=== PATIENT | male | born 1980 | race Caucasian/White ===

== ENCOUNTER 2019-12-14 07:25 | Inpatient (IN) | payer BC ==
[~2019-12-14] VITALS: Ht 177.8 cm; Wt 129.9 kg
[2019-12-14] VITALS (8 sets, daily range): BP systolic 118–151; BP diastolic 45–82
[~2019-12-14 07:25] MED LIST: DEPO-TESTO200 MG/1 M IM; FLEXERIL PO; KEFLEX500 MG PO; OXYCONTIN10 M1 PO; PERCOCET 5-3251 EACH PO; PYRIDIUM200 MG PO; VYVANSE60 MG PO
[2019-12-14] MEDS ORDERED: VYVANSE50 MG PO (07:34)
[2019-12-14] MEDS ORDERED: GABAPENTIN600 M1 PO (07:35)
[2019-12-14] MEDS ORDERED: PROZAC10 M1 PO (07:36)
[2019-12-14] MEDS ORDERED: [UNRECOGNIZED DRUG - OTHER] (07:36)
[2019-12-14 08:05] LABS: ABSOLUTE LYMPHOCYTES 1.4 thou/uL (0.8-5.3); ABSOLUTE MONOCYTES 1.1 thou/uL (0.0-1.2); ABSOLUTE NEUTROPHILS 6.8 thou/uL (1.6-8.1); BASOPHILS 0.1 %; EOSINOPHILS 0.1 %; HEMATOCRIT 33.9 % (42.0-52.0); HEMOGLOBIN 11.6 gm/dL (14.0-18.0); MCH 30.5 pg (26.0-34.0); MCHC 34.2 g/dL (28.0-37.0); MCV 89.3 fL (80.0-100.0); MONOCYTES 11.6 %; NUCLEATED RBCS 0 /100WBC; PLATELET COUNT* 214 thou/uL (150-400); POLYS 73.2 %; RDW-CV 14.3 % (10.5-14.5); WBC 9.3 thou/uL (4.0-11.0)
[2019-12-14 08:19] LABS: APTT 21.5 Seconds (25.0-31.3); CALCIUM 8.3 mg/dL (8.5-10.1); INR 1.1; POTASSIUM 4.4 mmol/L (3.5-5.1); PROTIME 11.2 Seconds (9.20-11.50)
[2019-12-14 08:23] LABS: ALBUMIN 3.6 g/dL (3.4-5.0); TOTAL BILIRUBIN 0.4 mg/dL (<0.1-1.0); TOTAL PROTEIN 6.9 g/dL (6.4-8.2)
[2019-12-14 09:12] LABS: URINE BILIRUBIN NEGATIVE (Negative); URINE BLOOD TRACE (Negative); URINE CLARITY CLEAR; URINE COLOR YELLOW; URINE GLUCOSE-RANDOM NEGATIVE (Negative); URINE KETONES NEGATIVE (Negative); URINE LEUKOCYTES-REFLEX NEGATIVE (Negative); URINE NITRITE-REFLEX NEGATIVE (Negative); URINE PROTEIN NEGATIVE (Negative); URINE UROBILINOGEN 0.2 E.U./dl (0.2-1.0)
[2019-12-14 15:30] LABS: HEMATOCRIT 29.6 % (42.0-52.0); HEMOGLOBIN 10.1 gm/dL (14.0-18.0)
--- NOTE | 2019-12-14 18:58 | NUR ---
VS CHARTED, NSR ON TELE, ROOM AIR, GI BLEED- NPO AT MIDNIGHT, COLONOSCOPY 11AM ON SUN, ADMISSION COMPLETED, PATIENT ORIENTED TO ROOM. SPOUSE AT BEDSIDE
[2019-12-14 21:35] LABS: HEMATOCRIT 27.6 % (42.0-52.0); HEMOGLOBIN 9.4 gm/dL (14.0-18.0)
[2019-12-14 21:43] LABS: CALCIUM 7.9 mg/dL (8.5-10.1); CREATININE 0.9 mg/dL (0.6-1.3); POTASSIUM 3.8 mmol/L (3.5-5.1)
[2019-12-15] VITALS: BP 131/70
[2019-12-15 04:00] VITALS: BP 120/66
[2019-12-15 06:00] LABS: ABSOLUTE LYMPHOCYTES 1.3 thou/uL (0.8-5.3); ABSOLUTE MONOCYTES 0.6 thou/uL (0.0-1.2); ABSOLUTE NEUTROPHILS 2.4 thou/uL (1.6-8.1); BASOPHILS 0.2 %; EOSINOPHILS 0.5 %; HEMATOCRIT 26.5 % (42.0-52.0); HEMOGLOBIN 9.2 gm/dL (14.0-18.0); MCH 30.7 pg (26.0-34.0); MCHC 34.6 g/dL (28.0-37.0); MCV 88.7 fL (80.0-100.0); MONOCYTES 13.1 %; MPV 8.2 fl. (7.2-11.1); NUCLEATED RBCS 0 /100WBC; POLYS 55.2 %; RBC 2.98 mil/uL (4.50-6.00); RDW-CV 13.8 % (10.5-14.5); WBC 4.3 thou/uL (4.0-11.0)
[2019-12-15 06:06] LABS: PLATELET COUNT* 137 thou/uL (150-400)
[2019-12-15 06:27] LABS: ALBUMIN 2.9 g/dL (3.4-5.0); CALCIUM 7.8 mg/dL (8.5-10.1); CREATININE 0.8 mg/dL (0.6-1.3); POTASSIUM 3.7 mmol/L (3.5-5.1); TOTAL BILIRUBIN 0.5 mg/dL (<0.1-1.0); TOTAL PROTEIN 5.8 g/dL (6.4-8.2)
--- NOTE | 2019-12-15 06:33 | NUR ---
ASSESSMENTS COMPLETED AT BEDSIDE, PLEASE SEE CHARTING FOR DETAILS. MEDICATIONS ADMINISTERED PER MAR. HOURLY ROUNDING COMPLETED FOR SAFETY. CURRENTLY RESTING IN BED WITH CALL LIGHT WITHIN REACH. BOWEL PREP COMPLETED ORDERED.
[2019-12-15 07:17] LABS: ESR (SEDRATE) 7 mm/hr (0-15)
[2019-12-15 08:20] VITALS: BP 119/53
[2019-12-15 12:40] VITALS: BP 112/57
--- NOTE | 2019-12-15 13:27 | EKG ---
[place] [address] ELECTROCARDIOGRAM REPORT Name: AILYN DONG Room: [place] [address] ADM IN .R.#: [id number] Admission: 12/14/19 Attend Phys: Talat Rolon Discharge: Date of : 76 Date of Service: 12/14/19 0750 Report #: [id number] THIS REPORT FOR: //name// [facility] ED Test Date: 2019-12-14 Test Time: 07:50:25 Pat Name: AILYN DONG Department: Room: [facility] Gender: M Vice President Quality Assurance: NICKI : [id number] Requested By: Jeff Mcneil Order Number: [id number] MD: Morgan Rai Measurements Intervals [place] Rate: 78 P: 78 TX: 114 QRS: 48 QRSD: 81 T: 28 QT: 381 QTc: 434 Interpretive Statements Sinus rhythm Borderline short TX interval No previous ECG available for comparison Electronically Signed On 12-15-2019 13:26:11 CDT by Morgan Rai [email or web address] <ELECTRONICALLY SIGNED> By: Morgan Rai MD, [facility] 12/15/19 1326 0750 0750 Morgan Rai MD, [facility] /EPI
[2019-12-15 16:30] VITALS: BP 115/60
--- NOTE | 2019-12-15 19:56 | NUR ---
ASSUMED PT CARE AT 0730. FULL ASSESSMENT DONE CHARTED. PT A/O X4, UP AD RINKU, NPO THIS AM FOR COLONOSCOPY. WAS FEELING NAUSEATED AFTER THE PROCEDURE AND C/O BACK PAIN. MEDS GIVEN PER AUG. PT HAS A CUT ON LEFT THUMB FROM AN ACCIDENT PRIOR TO ADMISSION, MEDICAITED OINTMENT ORDERED AND THUMB WRAPPED. IT IS SCABBED AND HEALING WELL. PT CALLS APPROPRIALTY FOR NEEDS. SR MEAGAN ON THE MONITOR. REPORT GIVEN TO SELWYN WALKER.
[2019-12-15 20:00] VITALS: BP 141/48
--- NOTE | 2019-12-15 20:00 | NUR ---
RECEIVED REPORT AND ASSUMED CARE OF PT, ASSESSMENT COMPLETED. PT C/O CONSTANT BACK PAIN. DISCUSSED EGD/COLONOSCOPY FINDINGS WITH ZOYA MILLARD. TELEMETRY ON SHOWING SR. WILL CONT TO MONITOR AND ASSIST NEEDED.
[2019-12-16] VITALS: BP 144/89
[2019-12-16 04:00] VITALS: BP 133/42
[2019-12-16 05:13] LABS: ABSOLUTE EOSINOPHILS 0.1 thou/uL (0.0-0.7); ABSOLUTE MONOCYTES 0.9 thou/uL (0.0-1.2); ABSOLUTE NEUTROPHILS 4.9 thou/uL (1.6-8.1); BASOPHILS 0.2 %; EOSINOPHILS 0.8 %; HEMATOCRIT 28.7 % (42.0-52.0); HEMOGLOBIN 9.9 gm/dL (14.0-18.0); LYMPHOCYTES 25.5 %; MCH 30.6 pg (26.0-34.0); MCHC 34.4 g/dL (28.0-37.0); MCV 88.9 fL (80.0-100.0); MONOCYTES 11.4 %; MPV 8.3 fl. (7.2-11.1); NUCLEATED RBCS 0 /100WBC; PLATELET COUNT* 177 thou/uL (150-400); POLYS 62.1 %; RBC 3.23 mil/uL (4.50-6.00); RDW-CV 14.3 % (10.5-14.5); WBC 7.9 thou/uL (4.0-11.0)
[2019-12-16 05:32] LABS: CREATININE 0.9 mg/dL (0.6-1.3); POTASSIUM 3.9 mmol/L (3.5-5.1)
[2019-12-16 05:38] LABS: % SATURATION 10 % (20-39); IRON 28 ug/dL (50-175)
--- NOTE | 2019-12-16 06:23 | NUR ---
AWAKE MOST OF NIGHT WITH C/O BACK PAIN. IV PAIN MED GIVEN X1. NO CHANGE IN ASSESSMENT OR RECTAL BLEEDING NOTED. HS GOALS OF REST AND SAFETY ACHIEVED. HOURLY ROUNDING OBSERVED.
[2019-12-16 06:38] LABS: ESR (SEDRATE) 3 mm/hr (0-15)
[2019-12-16 08:00] VITALS: BP 142/73
[2019-12-16] MEDS ORDERED: PANTOPRAZOLE SO40 M1 PO (09:45)
[2019-12-16] MEDS ORDERED: VITAMIN B-121000 MC2 SUBLING (09:45)
[2019-12-16 11:46] VITALS: BP 142/73
[2019-12-16] MEDS ORDERED: ACETAMINOPHEN325 MG PO (12:17)
--- NOTE | 2019-12-16 13:48 | NUR ---
VS CHARTED, A&OX4, ROOM AIR, NSR ON TELE, UP AD RINKU, CHRONIC LOWER BACK PAIN, HOURLY ROUNDING PERFORMED, POSSESSIONS AND CALL LIGHT REACH, REC DISCHARGE ORDERS, REVIEWED WITH PATIENT- QUESTIONS ANSWERED, SCRIPT FILED ELECTRONICALLY- CARE NOTES GIVEN, TELE MONITOR AND IV REMOVED WITHOUT COMPLICATION, PT TAKEN IN WC TO FRONT DOOR BY NURSING STAFF, PICKED UP BY SPOUSE IN FAMILY CAR.
--- NOTE | 2019-12-23 11:06 | CON ---
[facility] [address] [place] [address] CONSULTATION Name: AILYN DONG Room: [address] IN M.R.#: [id number] Admission: 12/14/19 Attend Phys: Shruthi Gomez Discharge: 12/16/19 Date of : 76 Report #: [id number] THIS REPORT FOR: //name// cc: IAIN Perez family physician/PCP IAIN - Ana family physician/PCP ~ THIS REPORT FOR: //name// CC: Saeid Mitchell DO FAM physician/PCP Pranav Rolon DO DATE OF SERVICE: 12/14/2019 REFERRING PHYSICIAN: Talat Rolon DO PRIMARY CARE PROVIDER: None. PROCEDURE PERFORMED: ____. IMPRESSION: 1. Overt hematochezia of uncertain etiology -- evaluate for upper and lower GI tract sources for the same. 2. History of previous gastric bypass and history of nonsteroidal use -- evaluate for complicated anastomotic ulcer versus other causes. 3. History of gastric bypass. RECOMMENDATIONS: Since the patient appeared to be orthostatic by pulse, but not by blood pressure and he is at risk for developing an anastomotic ulcer due to his recent use of meloxicam, we will proceed with upper endoscopy tonight. If this is unrevealing, then he will need to have a colonoscopy tomorrow. I have discussed the plans with the patient as well as and they are agreeable to the same. HISTORY OF PRESENT ILLNESS: The patient is a pleasant 39-year-old white male who presented to the emergency room with complaints of just feeling very lightheaded and dizzy and was having some overt hematochezia. He denies any complaints referable to his upper or lower GI tract. Denies any problem with his bowels or bowel frequency. He never had anything like this in the past. He has prior history of weight loss surgery with previous gastric bypass performed by Dr. Pranav Reilly few years ago, at which time he weighed over 450 pounds. He got down to 220 pounds and is currently back up to 300 pounds. He recently had been taking some meloxicam for some problems with his back and recently got steroid injection. Once started having some bleeding, he discontinued the meloxicam. He has undergone endoscopic studies [place] [address] CONSULTATION Name: AILYN DONG Room: [address]#: [id number] Admission: 12/14/19 Attend Phys: Shruthi Gomez Discharge: 12/16/19 Date of : 76 Report #: [id number] Melba but has never been seen by racecourse barrier attendant in the past. He denies any other issues at this time. ALLERGIES: LATEX. CURRENT MEDICATIONS: Include Vyvanse, gabapentin, fluoxetine. He was taking some oxycodone at one point. PAST MEDICAL AND SURGICAL HISTORY: Remarkable for peripheral neuropathy. He has had history of sleep apnea. He has had bariatric surgery with a gastric bypass and Heron-en-Y surgery. He has had hypertension. He has had ureteral surgery, prostate issues and back issues for which he is getting injections. SOCIAL HISTORY: The patient does not smoke or drink. FAMILY HISTORY: Negative. PHYSICAL EXAMINATION: GENERAL: Pleasant 39-year-old gentleman who is awake and alert. CARDIOPULMONARY: Revealed a regular rate and rhythm. LUNGS: Clear. ABDOMEN: Soft and minimally tender. No rebound or guarding noted. LABORATORY DATA: From the revealed a white count of 9.3, hemoglobin 11.6, platelet count 214,000, MCV is 89.3 and RDW is 14.3. By comparison in 2011; his hemoglobin was 13.7. His complete metabolic panel: Sodium 138, potassium 3.8, chloride 105, bicarbonate 28, BUN 22, creatinine 0.9 for GFR of 94. Total bilirubin 0.4, alkaline phosphatase 62, AST 17, ALT 19, albumin is 3.6. CT scan of the abdomen and pelvis performed on the revealed postsurgical changes compatible with previous gastric bypass. There was some high attenuation fluid still sitting within the rectum as well as throughout the remainder of the colon, possibly representing blood throughout the colon. There is no bowel wall thickening and pericolonic stranding or any other issues. Small bowel appeared normal. ____ possible abnormality was noted, there was also circumferential mural thickening of the urinary bladder despite bladder distention. DISCUSSION: At the present time, the patient has some GI bleeding with overt hematochezia. We will proceed with upper endoscopy today because of his [address] [address] CONSULTATION Name: LETITIAAILYN CRAWFORD Room: [address] IN M.R.#: [id number] Admission: 12/14/19 Attend Phys: Shruthi Gomez Discharge: 12/16/19 Date of : 76 Report #: [id number] orthostasis, where his heart rate went from 74-108 from the lying to a standing position, though the blood pressure remained stable. <ELECTRONICALLY SIGNED> By: William Casanova DO 12/23/19 1106 1253 [id number] Casanova DO /nt
== END 2019-12-16 13:00 | disposition home or self-care (01) | DRG 378 ==
LOC: M.ERS 07:25 → M.TBA-ER 09:48 → M.2W 09:48
PROVIDERS: Family Medicine; Internal Medicine Gastroenterology; ADMIT Internal Medicine; ATTEND Internal Medicine
PROC: 0DJ08ZZ Inspection of Upper Intestinal Tract, Via Natural or Artificial Opening Endoscopic (ICD-10-PCS; principal; 2019-12-14)
PROC: 0DJD8ZZ Inspection of Lower Intestinal Tract, Via Natural or Artificial Opening Endoscopic (ICD-10-PCS; 2019-12-15)
DX: K28.4 Chronic or unspecified gastrojejunal ulcer with hemorrhage (principal); D62 Acute posthemorrhagic anemia; Z68.41 Body mass index [BMI] 40.0-44.9, adult; I10 Essential (primary) hypertension; E66.01 Morbid (severe) obesity due to excess calories; G47.33 Obstructive sleep apnea (adult) (pediatric); E53.8 Deficiency of other specified B group vitamins; K64.3 Fourth degree hemorrhoids; K63.89 Other specified diseases of intestine; Z98.84 Bariatric surgery status; Z91.040 Latex allergy status

== ENCOUNTER 2020-02-14 00:45 | Observation (INO) | payer BC ==
[~2020-02-14] VITALS: Ht 180.3 cm; Wt 136.1 kg
--- NOTE | ~2020-02-14 | OP ---
[facility] [address] [place] [address] OPERATIVE REPORT Name: AILYN DONG Room: [address] M.R.#: [id number] Admission: 02/14/20 Attend Phys: Shruthi Gomez Discharge: Date of : 76 Report #: [id number] THIS REPORT FOR: //name// cc: IAIN - No family physician/PCP IAIN - No family physician/PCP ~ CC: [facility] physician/PCP Talat Rolon DICTATED BY: Juan Torres DO DATE OF SERVICE: 02/15/2020 PREOPERATIVE DIAGNOSIS: Cholecystitis. POSTOPERATIVE DIAGNOSIS: Cholecystitis. PROCEDURE PERFORMED: Laparoscopic cholecystectomy with liver biopsy. SURGEON: Shane Leung DO CATHODIC PROTECTION TECHNICIAN: Juan Torres, PGY4. SECOND CATHODIC PROTECTION TECHNICIAN: NANCIE Ramirez FINDINGS: Large, distended gallbladder with chronic cholecystitis. ESTIMATED BLOOD LOSS: 20. SPECIMENS: Gallbladder. COMPLICATIONS: None. ANESTHESIA: General and local. HISTORY OF PRESENT ILLNESS: The patient is a 40-year-old male presented with acute cholecystitis, history of Heron-en-Y gastric bypass and fatty liver. We discussed the plan for laparoscopic cholecystectomy. Risks, benefits, and alternatives discussed at length and he agreed to proceed with surgery. DESCRIPTION OF PROCEDURE: After consent was obtained, the patient was taken to the operating room and placed in the supine position. SCDs applied to bilateral lower extremities, safety belt placed across the patient's waist. Zosyn was being given prior to surgery and this was continued. The patient underwent general endotracheal anesthesia without any complication. The patient was prepped and draped in standard sterile fashion. Timeout was performed to confirm the patient and procedure. An 11 blade scalpel was used to make an [facility] [address] [id number] OPERATIVE REPORT Name: LETITIAAILYN YVETTE Room: [address] Charles#: [id number] Admission: 02/14/20 Attend Phys: Shruthi Gomez Discharge: Date of : 76 Report #: [id number] incision just above the umbilicus. Electrocautery was used for hemostasis and to dissect down to the level of the fascia. Once the fascia was encountered, it was scored with electrocautery. Hemostat was used to bluntly enter the peritoneum. Two stitches of 0 Vicryl placed on either side of the fascia. A 5 mm trocar was inserted into the abdomen. Insufflation was initiated without complication. Intraabdominal contents were inspected. The gallbladder could be seen underneath the edge of the liver. The patient was placed in reverse Trendelenburg and rotated to the left. A 5 mm trocar was placed in subxiphoid, two more 5 mm trocars were placed in the right upper quadrant. Gallbladder was grasped and elevated. Attention was turned towards isolating cystic artery and cystic duct. A combination of electrocautery and [place] dissection was used to circumferentially dissect out the cystic duct and was seen going up into the gallbladder. Firefly was used to identify the common bile duct and this was away from our surgical field. Once the cystic duct was completely isolated, we then turned our attention medially towards isolating the cystic artery. This again was isolated using combination of hook electrocautery and [place] dissection. Once the artery was completely dissected out circumferentially and could be seen going up into the gallbladder. Critical view of safety was obtained. Both structures were clipped proximally and once distally. Both structures were cut. The gallbladder was then dissected off the bed of liver using hook electrocautery. Hemostasis to the liver bed was ensured using hook electrocautery. The gallbladder was placed in laparoscopic EndoCatch bag. Attention was then turned towards the liver. We obtained a biopsy of the liver using three core samples. These were sent for pathologic evaluation. Once hemostasis was ensured with electrocautery we elected to place some Surgicel in the gallbladder fossa and over the bed of the liver. At this point, the right upper quadrant was suctioned free of fluid. Insufflation was let down. All trocars were removed under direct visualization. Gallbladder and its contents were removed from the supraumbilical trocar site. Supraumbilical fascia was closed with one stitch of 0 Vicryl in [id number] fashion and subcutaneous tissue was reapproximated with 3-0 Vicryl. All skin incisions were reapproximated with 4-0 Monocryl. Sterile dressing was applied. All needle, instrument, and sponge counts were correct x 2 at the end of the case. The patient was awoken from general anesthesia and transferred to PACU in stable condition. By: [id number] Cortez Leung DO /nt
[~2020-02-14 00:45] MED LIST changes: +ACETAMINOPHEN325 MG PO; +GABAPENTIN600 M1 PO; +PANTOPRAZOLE SO40 M1 PO; +PROZAC10 M1 PO; +VITAMIN B-121000 MC2 SUBLING; +VYVANSE50 MG PO; +[UNRECOGNIZED DRUG - OTHER]
[2020-02-14 00:56] VITALS: BP 132/56
[2020-02-14] MEDS ORDERED: BACLOFEN 10MG T10 MG PO (00:59)
[2020-02-14] MEDS ORDERED: BARIATRIC MV-I1 EACH PO (00:59)
[2020-02-14] MEDS ORDERED: ZANAFLEX4 M1 PO (00:59)
[2020-02-14] MEDS ORDERED: ADIPEX-P37.5 M1 PO (01:00)
[2020-02-14 01:29] LABS: ABSOLUTE EOSINOPHILS 0.1 thou/uL (0.0-0.7); ABSOLUTE LYMPHOCYTES 1.1 thou/uL (0.8-5.3); ABSOLUTE MONOCYTES 0.8 thou/uL (0.0-1.2); ABSOLUTE NEUTROPHILS 2.7 thou/uL (1.6-8.1); BASOPHILS 0.6 %; EOSINOPHILS 1.7 %; HEMATOCRIT 27.8 % (42.0-52.0); LYMPHOCYTES 23.9 %; MCH 24.7 pg (26.0-34.0); MCHC 32.4 g/dL (28.0-37.0); MCV 76.2 fL (80.0-100.0); MONOCYTES 17.5 %; MPV 8.8 fl. (7.2-11.1); NUCLEATED RBCS 0 /100WBC; PLATELET COUNT* 155 thou/uL (150-400); POLYS 56.3 %; RBC 3.65 mil/uL (4.50-6.00); RDW-CV 20.3 % (10.5-14.5); WBC 4.7 thou/uL (4.0-11.0)
[2020-02-14 01:35] LABS: CALCIUM 7.6 mg/dL (8.5-10.1); POTASSIUM 4.1 mmol/L (3.5-5.1)
[2020-02-14 01:39] LABS: ALBUMIN 3.3 g/dL (3.4-5.0); TOTAL BILIRUBIN 0.2 mg/dL (<0.1-1.0); TOTAL PROTEIN 6.3 g/dL (6.4-8.2)
[2020-02-14 04:28] LABS: HYPOCHROMASIA 2+
[2020-02-14 04:30] LABS: ANISOCYTOSIS 1+
[2020-02-14 08:39] VITALS: BP 128/63
[2020-02-14 08:57] VITALS: BP 143/88
--- NOTE | 2020-02-14 09:25 | NUR ---
PT ADMITTED WITH CHOLECYSTITIS. PT RESTING IN BED. PT C/O PAIN, MEDS GIVEN IN ER. FAMILY AT BEDSIDE. FALL RISK PRECAUTIONS IN PLACE. LATEX PRECAUTIONS IN PLACE. NPO. CONSULTS CALLED. WILL CONTINUE TO MONITOR.
--- NOTE | 2020-02-14 16:00 | NUR ---
PT.RESTING IN BED. STATED HE LIVES WITH HIS AND CHILDREN. WORKS [employer] AND FRAME [employer]. IS TOTALLY INDEPENDENT. NO USE OF DME OR HX OF HH OR SNF. NO DISCHARGE NEEDS IDENTIFIED.
--- NOTE | 2020-02-14 16:27 | NUR ---
PT REMAINED ALERT AND ORIENTED. PT RESTING IN BED. FULL LIQUIDS, NPO AFTER MIDNIGHT. FALL RISK PRECAUTIONS IN PLACE. LATEX ALLERGIES PRECAUTIONS IN PLACE. PAIN MEDS GIVEN ORDERED. HOURLY ROUNDING COMPLETED. WILL CONTINUE TO MONITOR.
[2020-02-14 16:54] VITALS: BP 133/80
[2020-02-14 20:00] VITALS: BP 145/77
[2020-02-15 03:59] LABS: ABSOLUTE EOSINOPHILS 0.1 thou/uL (0.0-0.7); ABSOLUTE MONOCYTES 0.7 thou/uL (0.0-1.2); ABSOLUTE NEUTROPHILS 2.5 thou/uL (1.6-8.1); BASOPHILS 0.4 %; EOSINOPHILS 1.8 %; HEMATOCRIT 27.6 % (42.0-52.0); HEMOGLOBIN 8.9 gm/dL (14.0-18.0); LYMPHOCYTES 23.7 %; MCH 24.6 pg (26.0-34.0); MCHC 32.4 g/dL (28.0-37.0); NUCLEATED RBCS 0 /100WBC; PLATELET COUNT* 136 thou/uL (150-400); POLYS 58.1 %; RBC 3.63 mil/uL (4.50-6.00); RDW-CV 19.7 % (10.5-14.5); WBC 4.3 thou/uL (4.0-11.0)
[2020-02-15 04:12] LABS: ALBUMIN 2.9 g/dL (3.4-5.0); CALCIUM 8.1 mg/dL (8.5-10.1); POTASSIUM 3.6 mmol/L (3.5-5.1); TOTAL BILIRUBIN 0.4 mg/dL (<0.1-1.0); TOTAL PROTEIN 6.3 g/dL (6.4-8.2)
--- NOTE | 2020-02-15 04:35 | NUR ---
PT A&O X 4, VSS ON RA. MEDS GIVEN ORDERED. ABD PAIN MANAGED WITH MORPHINE. NPO SINCE MIDNIGHT. INDEPENDENT IN ROOM. WILL CONTINUE TO MONITOR.
[2020-02-15 07:30] VITALS: BP 124/66
--- NOTE | 2020-02-15 13:53 | NUR ---
denies need for pain medication at this time.
[2020-02-15 17:00] VITALS: BP 123/75
[2020-02-15 20:30] VITALS: BP 137/68
--- NOTE | 2020-02-16 04:12 | NUR ---
PT A&O. PAIN MANAGED WITH MORPHINE. NPO AFTER MIDNIGHT FOR PROCEDURE. IVF INFUISING ORDERED. PT SLEEPING/RESTING QUIETLY THROUGH THE NIGHT. WILL CONTINUE TO MONITOR.
[2020-02-16 04:27] LABS: ABSOLUTE EOSINOPHILS 0.1 thou/uL (0.0-0.7); ABSOLUTE MONOCYTES 0.7 thou/uL (0.0-1.2); ABSOLUTE NEUTROPHILS 2.2 thou/uL (1.6-8.1); BASOPHILS 0.4 %; EOSINOPHILS 1.8 %; HEMATOCRIT 28.4 % (42.0-52.0); HEMOGLOBIN 9.3 gm/dL (14.0-18.0); LYMPHOCYTES 24.2 %; MCH 24.7 pg (26.0-34.0); MCHC 32.6 g/dL (28.0-37.0); MPV 9.2 fl. (7.2-11.1); NUCLEATED RBCS 0 /100WBC; PLATELET COUNT* 151 thou/uL (150-400); POLYS 55.6 %; RBC 3.74 mil/uL (4.50-6.00); RDW-CV 19.9 % (10.5-14.5)
[2020-02-16 04:38] LABS: INR 1.1; PROTIME 11.2 Seconds (9.20-11.50)
[2020-02-16 04:53] LABS: ALBUMIN 2.9 g/dL (3.4-5.0); CALCIUM 7.8 mg/dL (8.5-10.1); CREATININE 1.1 mg/dL (0.6-1.3); POTASSIUM 3.7 mmol/L (3.5-5.1); TOTAL BILIRUBIN 0.3 mg/dL (<0.1-1.0); TOTAL PROTEIN 6.5 g/dL (6.4-8.2)
[2020-02-16 07:30] VITALS: BP 135/70
--- NOTE | 2020-02-16 08:43 | NUR ---
TO SURGERY AT THIS TIME.
--- NOTE | 2020-02-16 13:40 | NUR ---
pt back from surgery. awake and alert. on 2L PER NC. 02 SAT 94%. SCD'S ON JERI. LOWER LEGS. 4 SMALL INCISIONS TO ABD ALL DRY AND INTACT - DERMABOND.
[2020-02-16 13:42] VITALS: BP 170/92
[2020-02-16 16:10] VITALS: BP 170/92
[2020-02-16 17:11] VITALS: BP 143/70
[2020-02-16] MEDS ORDERED: PERCOCET 5-3251 EACH PO (17:44)
--- NOTE | 2020-02-16 18:16 | NUR ---
DISCHARGED TO HOME. PT AND VERBALIZE UNDERSTANDING TO ALL DISCHARGE INSTRUCTIONS AND MEDICATION SCRIPT. A&O X 4, PWD. 08/05 ABD PAIN. DISCHARGED VIA W/C TO CAR AND SIGNIFICANT OTHER DROVE HOME.
== END 2020-02-16 18:20 | disposition home or self-care (01) ==
LOC: M.ERS 00:45 → M.ORTHSURG 06:23 → M.TBA-ER 06:23 → M.ORTHSURG 08:49
PROVIDERS: Emergency Medicine; Internal Medicine Gastroenterology; ADMIT Internal Medicine; ATTEND Internal Medicine
DX: Z03.818 Encounter for observation for suspected exposure to other biological agents ruled out (principal); K81.9 Cholecystitis, unspecified; F90.9 Attention-deficit hyperactivity disorder, unspecified type; I10 Essential (primary) hypertension; G47.30 Sleep apnea, unspecified; K92.2 Gastrointestinal hemorrhage, unspecified; D62 Acute posthemorrhagic anemia; K27.9 Peptic ulcer, site unspecified, unspecified as acute or chronic, without hemorrhage or perforation; M54.5 Low back pain; Z79.899 Other long term (current) drug therapy

== ENCOUNTER 2021-07-30 19:19 | Emergency (ER) | payer BC ==
[~2021-07-30] VITALS: Ht 175.3 cm; Wt 124.7 kg
[~2021-07-30 19:19] MED LIST changes: +ADIPEX-P37.5 M1 PO; +BACLOFEN 10MG T10 MG PO; +BARIATRIC MV-I1 EACH PO; +ZANAFLEX4 M1 PO
[2021-07-30 19:22] VITALS: BP 170/99
== END 2021-07-30 22:04 | disposition left against medical advice (07) ==
LOC: M.ERS 19:19
DX: H92.02 Otalgia, left ear (principal); R68.84 Jaw pain; Z53.21 Procedure and treatment not carried out due to patient leaving prior to being seen by health care provider